=== PATIENT | female | born 1975 | race Caucasian/White ===

== ENCOUNTER 2018-01-12 07:05 | Inpatient (IN) | payer MEDICAID ==
[~2018-01-12 07:05] MED LIST: OXYTOCIN 30 UNITS/LR 500 ML BAG IV
[2018-01-12] MEDS ORDERED: MISOPROSTOL 200 MCG TAB PR ×2 (08:30→16:30)
[2018-01-12] MEDS ORDERED: CARBOPROST 250 MCG INJ IM ×2 (08:30→16:30)
[2018-01-12] MEDS ORDERED: METHYLERGONOVINE 0.2 MG INJ IM ×2 (08:30→16:30)
[2018-01-12] MEDS ORDERED: CEFAZOLIN 2 GM/50 ML (PMX) 50 ML IVPB (08:30)
[2018-01-12] MEDS: LACTATED RINGER'S 1,000 ML IV ×2 (08:31→09:59)
[2018-01-12 08:33] LABS: ADD MAN DIFF? NO
[2018-01-12 08:35] LABS: BASOPHILS % 0.3 % (0.0-2.0); EOSINOPHILS # 0.1 10^3/ul (0.0-0.5); HEMATOCRIT 35.7 % (37.0-47.0); HEMOGLOBIN 12.3 g/dl (12.0-16.0); LYMPHOCYTES # 2.1 10^3/ul (0.8-2.9); LYMPHOCYTES % 26.7 % (15.0-51.0); MEAN CORPUSCULAR HEMOGLOBIN 32.3 pg (29.0-33.0); MEAN CORPUSCULAR HGB CONC 34.5 g/dl (32.0-37.0); MEAN CORPUSCULAR VOLUME 93.7 fl (82.0-101.0); MEAN PLATELET VOLUME 10.5 fl (7.4-10.4); MONOCYTE # 0.6 10^3/ul (0.3-0.9); MONOCYTES % 7.3 % (0.0-11.0); NEUTROPHIL # 5.1 10^3/ul (1.6-7.5); NEUTROPHILS % 64.2 % (39.0-77.0); PLATELET COUNT 250 10^3/UL (140-415); RED BLOOD COUNT 3.81 10^6/ul (4.20-5.40); RED CELL DISTRIBUTION WIDTH 13.2 % (11.5-14.5)
[2018-01-12 08:39] LABS: INR 0.93; PROTIME 12.5 Sec (11.9-14.9)
[2018-01-12 08:40] LABS: PARTIAL THROMBOPLASTIN TIME 30.8 Sec (23.0-35.0)
[2018-01-12] MEDS ORDERED: DIPHENHYDRAMINE 50 MG INJ IV (12:00)
[2018-01-12] MEDS ORDERED: HYDROmorphONE 0.5 MG/0.5 ML SYG IV ×2 (12:00)
[2018-01-12] MEDS ORDERED: HYDROmorphONE 1 MG/5 ML IV SYRINGE IV ×3 (12:00)
[2018-01-12] MEDS ORDERED: NALOXONE (0.4 MG/ML) INJ IV (12:00)
[2018-01-12] MEDS ORDERED: ALBUTEROL 0.083% (NEB) 2.5 MG/3 ML AMP HHN (12:00)
[2018-01-12] MEDS ORDERED: KETOROLAC 30 MG INJ IV (12:00)
[2018-01-12] MEDS ORDERED: FENTAnyl 50 MCG/ML VIAL IV ×2 (12:00)
[2018-01-12] MEDS ORDERED: ONDANSETRON 4 MG INJ IV ×2 (12:00)
[2018-01-12] MEDS ORDERED: morphine SULFATE/PF (10 MG/10 ML) INJ (12:28)
[2018-01-12] MEDS ORDERED: PHENYLephrine (100 MCG/ML) 5ML SYG (12:46)
[2018-01-12 12:48] LABS: HEPATITIS B SURFACE ANTIGEN NEGATIVE (NEGATIVE)
[2018-01-12 15:09] LABS: RAPID PLASMA REAGIN NONREACTIVE (NR)
[2018-01-12] MEDS: DIPHENHYDRAMINE 50 MG INJ IV (15:19)
[2018-01-12] MEDS: OXYTOCIN 30 UNITS/LR 500 ML IV ×3 (15:26→22:29)
[2018-01-12] MEDS ORDERED: OXYTOCIN 30 UNITS/LR 500 ML IV (16:30)
[2018-01-12] MEDS ORDERED: OXYCODONE/ACETAMINOPHEN (5/325) TAB PO ×2 (16:30)
[2018-01-12] MEDS: IBUPROFEN 600 MG TAB PO (18:00)
[2018-01-12] MEDS: KETOROLAC 30 MG INJ IV (18:10)
[2018-01-12] MEDS: SENNA/DOCUSATE NA (8.6MG/50MG) TAB PO (21:00)
[2018-01-12] MEDS: CEFAZOLIN 1 GM/50 ML (PMX) 50 ML IVPB (21:36)
[2018-01-13] MEDS: OXYTOCIN 30 UNITS/LR 500 ML IV ×2 (02:18→04:28)
[2018-01-13] MEDS: IBUPROFEN 600 MG TAB PO ×4 (06:00→14:06)
[2018-01-13] MEDS: LACTATED RINGER'S 1,000 ML IV (06:05)
[2018-01-13 07:21] LABS: ADD MAN DIFF? NO
[2018-01-13 07:29] LABS: WHITE BLOOD COUNT 8.2 10^3/ul (4.8-10.8)
[2018-01-13 07:29] LABS: BASOPHILS % 0.1 % (0.0-2.0); EOSINOPHILS % 0.4 % (0.0-7.0); HEMATOCRIT 30.2 % (37.0-47.0); HEMOGLOBIN 10.5 g/dl (12.0-16.0); LYMPHOCYTES # 1.7 10^3/ul (0.8-2.9); LYMPHOCYTES % 21.2 % (15.0-51.0); MEAN CORPUSCULAR HEMOGLOBIN 32.6 pg (29.0-33.0); MEAN CORPUSCULAR HGB CONC 34.8 g/dl (32.0-37.0); MEAN CORPUSCULAR VOLUME 93.8 fl (82.0-101.0); MEAN PLATELET VOLUME 10.4 fl (7.4-10.4); MONOCYTE # 0.5 10^3/ul (0.3-0.9); MONOCYTES % 6.2 % (0.0-11.0); NEUTROPHIL # 5.9 10^3/ul (1.6-7.5); NEUTROPHILS % 71.6 % (39.0-77.0); PLATELET COUNT 226 10^3/UL (140-415); RED BLOOD COUNT 3.22 10^6/ul (4.20-5.40); RED CELL DISTRIBUTION WIDTH 12.9 % (11.5-14.5)
[2018-01-13] MEDS: SENNA/DOCUSATE NA (8.6MG/50MG) TAB PO ×2 (09:42→20:54)
[2018-01-13] MEDS: KETOROLAC 30 MG INJ IV (09:43)
[2018-01-13] MEDS: HYDROCODONE/APAP (5/325) TAB PO ×2 (14:06→18:23)
[2018-01-13] MEDS: LANOLIN 7 GM TUBE TOP (18:23)
[2018-01-14] MEDS: IBUPROFEN 600 MG TAB PO ×4 (00:05→17:37)
[2018-01-14] MEDS: SENNA/DOCUSATE NA (8.6MG/50MG) TAB PO ×2 (09:10→21:34)
[2018-01-14] MEDS: NA PHOSPHATE/BIPHOS 133 ML ENEMA PR (11:59)
[2018-01-14] MEDS: HYDROCODONE/APAP (5/325) TAB PO (22:49)
[2018-01-15] MEDS: IBUPROFEN 600 MG TAB PO ×3 (00:25→12:00)
[2018-01-15] MEDS: SENNA/DOCUSATE NA (8.6MG/50MG) TAB PO (09:32)
[2018-01-15] MEDS: DIPHTH/TET/ACEL PERTUSS (ADULT) 0.5 ML VIAL IM* (09:35)
== END 2018-01-15 14:00 | disposition home or self-care (01) | DRG 788 ==
LOC: L-D 07:05 → PP1 16:17
PROVIDERS: Obstetrics & Gynecology
PROC: 10D00Z1 Extraction of Products of Conception, Low, Open Approach (ICD-10-PCS; principal; 2018-01-12 09:00)
DX: O24.420 Gestational diabetes mellitus in childbirth, diet controlled (principal); O34.219 Maternal care for unspecified type scar from previous cesarean delivery; O99.214 Obesity complicating childbirth; E66.01 Morbid (severe) obesity due to excess calories; Z3A.39 39 weeks gestation of pregnancy; Z37.0 Single live birth; Z23 Encounter for immunization
CPT/HCPCS: 82962; 85025; 85610; 85730; 86592; 86850; 86900; 86901; 87340; 90686; 90715; 99464